=== PATIENT | male | born 1970 | race Caucasian/White ===

== ENCOUNTER 2021-08-12 10:20 | Emergency (ER) | payer MEDICAID ==
[~2021-08-12] VITALS: Ht 175.3 cm; Wt 88.0 kg
[2021-08-12 10:34] VITALS: BP 130/89
== END 2021-08-12 11:09 | disposition home or self-care (01) ==
LOC: ER 10:20
DX: S61.411D Laceration without foreign body of right hand, subsequent encounter (principal); X58.XXXD Exposure to other specified factors, subsequent encounter; Z88.0 Allergy status to penicillin
CPT/HCPCS: 99281

== ENCOUNTER 2021-08-17 13:23 | Emergency (ER) | payer MEDICAID ==
[~2021-08-17] VITALS: Ht 162.6 cm; Wt 81.0 kg
[2021-08-17 13:30] VITALS: BP 122/89
[2021-08-17] MEDS ORDERED: DOXY100T2 MT (15:31)
== END 2021-08-17 15:02 | disposition home or self-care (01) ==
LOC: ER 13:23
DX: Z48.02 Encounter for removal of sutures (principal); T81.49XA Infection following a procedure, other surgical site, initial encounter; T81.49XD Infection following a procedure, other surgical site, subsequent encounter; Y83.8 Other surgical procedures as the cause of abnormal reaction of the patient, or of later complication, without mention of misadventure at the time of the procedure; Z88.0 Allergy status to penicillin
CPT/HCPCS: 99281; Z7610

== ENCOUNTER 2024-07-22 16:00 | Emergency (ER) | payer SELFPAY ==
[~2024-07-22] VITALS: Ht 167.6 cm; Wt 88.0 kg
[~2024-07-22 16:00] MED LIST: DOXY100T2 MT
[2024-07-22 16:23] VITALS: BP 144/98; TEMP 36.7; O2SAT 98
[2024-07-22 16:24] VITALS: PULSE 81; RESP 18; O2SAT 99
[2024-07-22] MEDS ORDERED: IBUP-2029 MT (19:08)
[2024-07-22] MEDS ORDERED: ACET-2708 MT (19:09)
[2024-07-22] MEDS: IBUPROFEN 600MG TABLET PO ONE (19:15)
[2024-07-22] MEDS: ACETAMINOPHEN 325MG TABLET PO ONE (19:15)
== END 2024-07-22 19:24 | disposition home or self-care (01) ==
LOC: ER 16:00
DX: S50.12XA Contusion of left forearm, initial encounter (principal); R03.0 Elevated blood-pressure reading, without diagnosis of hypertension; Z88.0 Allergy status to penicillin; W19.XXXA Unspecified fall, initial encounter; Y93.89 Activity, other specified; Y92.89 Other specified places as the place of occurrence of the external cause; Y99.8 Other external cause status
CPT/HCPCS: 73090; 99283